=== PATIENT | female | born 1975 | race Caucasian/White ===

== ENCOUNTER 2016-11-07 14:18 | Emergency (ER) | payer MEDICARE ==
[2016-11-07] MEDS ORDERED: Sodium Chloride 0.9% 10 ML Syringe FLUSH PRN (14:25)
--- NOTE | 2016-11-07 14:41 | EDM.PDOC ---
ED HPI GENERAL MEDICAL PROBLEM - General Stated Complaint: STROKE FERNANDA, [id number] Time Seen by Provider: 11/07/16 14:32 Source of Information: Reports: Patient, RN Notes Reviewed History Limitations: Reports: No Limitations - History of Present Illness INITIAL COMMENTS - FREE TEXT/NARRATIVE: patient is a 40-year-old female who presents after she was at home and was getting ready to wash the dishes when she began having some right-sided tongue and right-sided lip tingling she states she also had some mild right leg weakness and came directly to the emergency room upon arrival to the emergency room all symptoms have resolved patient states symptoms last approximately 5 minuteshe denies any nausea vomiting headache recent fever or chills or illnesses. 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 Onset: Sudden Quality: Reports: Other (no pain numbness or tingling at this time) Severity: Mild Improves with: Reports: None Worsens with: Reports: None - Related Data Allergies Allergy/AdvReac Type Severity Reaction Status Date / Time cephalexin [From Keflex] Allergy Intermediate rash, Verified 05/09/16 13:52 itching AJMEL Inhibitors Allergy Unknown unknown Verified 05/09/16 15:46 Home Meds: Home Meds Carvedilol [Carvedilol] 6.25 mg PO ASDIRECTED PRN 05/09/16 [History] Darbepoetin Anant [Aranesp] 25 mcg IJ ASDIRECTED 05/09/16 [History] Doxercalciferol [Hectorol] 4 mcg IV ASDIRECTED 05/09/16 [History] Furosemide [Furosemide] 40 mg PO BID 05/09/16 [History] Loratadine [Claritin] 10 mg PO DAILY 05/09/16 [History] Vit B Cmplx NO3/Fa/C/Biot/Zinc [Nephplex Rx] 1 tab PO DAILY 05/09/16 [History] amLODIPine [Norvasc] 10 mg PO DAILY 05/09/16 [History] Aspirin 325 mg PO DAILY 11/07/16 [History] Heparin Sodium,Porcine/PF [Heparin 500 Unit/5 ml (100/ml)] 500 units .ROUTE ASDIRECTED 11/07/16 [History] atorvaSTATin [Lipitor] 10 mg PO BEDTIME 11/07/16 [History] Past Medical History Cardiovascular History: Reports: Heart Murmur, Hypertension Genitourinary History: Reports: Dialysis, Renal Disease, Other (See Below) Other Genitourinary History: left kidney not functioning and right kidney functioning 7%. Has Focal sclerosis of the kidney disease. Shunt left arm. Musculoskeletal History: Reports: Other (See Below) Other Musculoskeletal History: Raynaud disease Neurological History: Reports: CVA Endocrine/Metabolic History: Reports: Vitamin D Deficiency Hematologic History: Reports: Blood Transfusion(s), Iron Deficiency - Infectious Disease History Infectious Disease History: Reports: Chicken Pox - Past Surgical History Female Surgical History: Reports: Section, Tubal Ligation Social & Family History - Family History HEENT: Reports: Other (See Below) Other HEENT Family History: father wears glasses. No other problems. Cardiac: Reports: Heart Failure, High Cholesterol, Hypertension, CT Endocrine/Metabolic: Reports: Diabetes, Type I, Diabetes, type II, Hypothyroidism Oncologic: Reports: Bone, Breast, Lung - Tobacco Use Smoking Status *Q: Current Every Day Smoker Years of Tobacco use: 14 Packs/Tins Daily: 1 ED ROS GENERAL - Review of Systems Review Of Systems: See Below Constitutional: Reports: No Symptoms HEENT: Reports: No Symptoms Respiratory: Reports: No Symptoms Cardiovascular: Reports: No Symptoms Endocrine: Reports: No Symptoms Musculoskeletal: Reports: No Symptoms Skin: Reports: No Symptoms Neurological: Reports: Numbness (right side of the tongue and lips), Tingling, Weakness ED EXAM, NEURO - Physical Exam Exam: See Below Exam Limited By: No Limitations General Appearance: Alert, WD/WN, No Apparent Distress Eye Exam: Bilateral Eye: EOMI, PERRL Nose: Normal Inspection, Normal Mucosa, No Blood Throat/Mouth: Normal Inspection, Normal Lips, Normal Teeth, Normal Gums, Normal Oropharynx, Normal Voice, No Airway Compromise, Other (mild right sided deviation of the tongue on protrusion) Head Exam: Atraumatic, Normocephalic Neck: Normal Inspection, Supple, Non-Tender, Full Range of Motion Respiratory/Chest: No Respiratory Distress, Lungs Clear, Normal Breath Sounds, No Accessory Muscle Use, Chest Non-Tender Cardiovascular: Normal Peripheral Pulses, Regular Rate, Rhythm, No Edema, No Gallop, No JVD, No Murmur, No Rub Neurological: Alert, Normal Mood/Affect, Normal Dorsiflexion, CN II-XII Intact, Normal Plantar Flexion, Normal Gait, Normal Reflexes, No Motor/Sensory Deficits , Oriented x 3. No: Abnormal Finger to Nose, Abnormal Sensation, Abnormal Light Touch, Abnormal Motor, Abnormal Pin Prick, Abn 2 Pt Discrimination, Straight Leg Raise (L), Straight Leg Raise (R) Extremities: Normal Range of Motion, Non-Tender, No Pedal Edema, Normal Capillary Refill, Other (dialysis shunt left upper arm ) Skin Exam: Warm, Dry, Intact, Normal Color, No Rash Course - Vital Signs Last Recorded V/S: Last Vital Signs Temp 98.4 F 11/07/16 14:18 Pulse 86 11/07/16 14:18 Resp 22 H 11/07/16 14:18 BP 133/72 11/07/16 14:18 Pulse Ox 98 11/07/16 14:18 - Orders/Labs/Meds Orders: Active Orders 24 hr Category Date Time Status Blood Glucose Check, Bedside [RC] ONETIME Care 11/07/16 14:30 Active Peripheral IV Care [RC] . DIRECTED Care 11/07/16 14:26 Active COMPREHENSIVE METABOLIC PN,CMP [CHEM] Stat Lab 11/07/16 14:50 Received INR,PT,PROTHROMBIN TIME [COAG] Stat Lab 11/07/16 14:50 Received Sodium Chloride 0.9% [Saline Flush] Med 11/07/16 14:25 Active 10 ml FLUSH ASDIRECTED PRN Peripheral IV Insertion Adult [OM.PC] Routine Oth 11/07/16 14:25 Ordered Medication Orders Sodium Chloride (Saline Flush) 10 ml FLUSH ASDIRECTED PRN PRN Reason: Keep Vein Open Labs: Laboratory Tests 11/07/16 11/07/16 Range/Units 14:39 14:50 WBC 11.8 H (5.0-10.0) 10^3/uL RBC 3.37 L (4.2-5.4) 10^6/uL Hgb 11.0 L (12.0-16.0) g/dL Hct 33.3 L (37.0-47.0) % MCV 98.8 (80-100) fL MCH 32.6 (27.0-34.0) pg MCHC 33.0 (33.0-35.0) g/dL Plt Count 267 (150-450) 10^3/uL Neut % (Auto) 67.1 (42.2-75.2) % Lymph % (Auto) 13.8 L (20.5-50.1) % [place] % (Auto) 14.0 H (2-8) % Eos % (Auto) 4.9 H (1.0-3.0) % Baso % (Auto) 0.2 (0.0-1.0) % POC Glucose 118 H (70-105) mg/dl Meds: Medications Generic Name Dose Route Start Last Admin Trade Name Freq PRN Reason Stop Dose Admin Sodium Chloride 10 ml 11/07/16 14:25 Saline Flush FLUSH ASDIRECTED PRN Keep Vein Open - Radiology Interpretation Free Text/Narrative:: CT head w/o no new signs of focal cerebral cortical edema, infarct, intracerebral/intraventricular/subarchnoid bleed or hydrocephalus. per radiology report reviewed by myself. - Re-Assessments/Exams Free Text/Narrative Re-Assessment/Exam: 11/07/16 15:35 I contacted [facility] and was unable to get hold of neurology so I spoke with Dr Cho the Hospitalist who agreed to admit and have neurology consult. Patient and Dr. Cho were agreeable to the patient coming in via private vehicle. She was given 75 mg of Plavix prior to discharge and was told to go directly to [facility] for Admission. issues family was at bedside and was agreeable that the patient would followup as directed. Departure - Departure Time of Disposition: 15:37 Disposition: DC/Tfer to Acute Hospital 02 Condition: good Clinical Impression: TIA (transient ischemic attack) Qualifiers: Transient cerebral ischemia type: unspecified Qualified Code(s): G45.9 - Transient cerebral ischemic attack, unspecified - Discharge Information Additional Instructions: GO DIRECTLY TO [facility] FOR ADMISSION - My Orders Last 24 Hours: My Active Orders 11/07/16 14:25 Sodium Chloride 0.9% [Saline Flush] 10 ml FLUSH ASDIRECTED PRN Peripheral IV Insertion Adult [OM.PC] Routine 11/07/16 14:26 Peripheral IV Care [RC] . DIRECTED 11/07/16 14:30 Blood Glucose Check, Bedside [RC] ONETIME 11/07/16 14:50 COMPREHENSIVE METABOLIC PN,CMP [CHEM] Stat INR,PT,PROTHROMBIN TIME [COAG] Stat - Assessment/Plan Last 24 Hours: My Active Orders 11/07/16 14:25 Sodium Chloride 0.9% [Saline Flush] 10 ml FLUSH ASDIRECTED PRN Peripheral IV Insertion Adult [OM.PC] Routine 11/07/16 14:26 Peripheral IV Care [RC] . DIRECTED 11/07/16 14:30 Blood Glucose Check, Bedside [RC] ONETIME 11/07/16 14:50 COMPREHENSIVE METABOLIC PN,CMP [CHEM] Stat INR,PT,PROTHROMBIN TIME [COAG] Stat
--- NOTE | 2016-11-07 14:48 | CT ---
Clinical history: 40-year-old hypertensive renal dialysis patient with transient right-sided weaknes s and some speech difficulties reported on previous CT exam head 09 May 2016 for similar sympto matology to have a "negative" exam. Scan technique: Volume acquisition of data emergency unenhanced CT scan of the head obtained with pa tient lying supine on the Siemens multi slice scanner [facility]. All data archived in the PAC system for storage and study (bone/brain windows). Interpretation: Negative exam unchanged when compared directly to images of 2015. 1. No new signs of focal cerebral cortical edema, infarct, intracerebral/intraventricular/subarachno id bleed or hydrocephalus. 2. Physiologic midline pineal and symmetric choroid plexus calcifications. 3. Cerebellum and brainstem unremarkable. 4. Uniformly thick bony calvarium without sign of skull fracture. Symmetric clear pneumatization of the mastoid and paranasal sinuses. Nasal septum is straight in the midline.
[2016-11-07 15:08] VITALS: BP 133/72
[2016-11-07 15:17] LABS: CHLORIDE,CL 92 mmol/L (101-111); SODIUM,NA 134 mmol/L (135-145)
[2016-11-07] MEDS ORDERED: Clopidogrel 75 MG Tab PO ONE (15:26)
--- NOTE | 2016-11-09 14:42 | EKG ---
11/07/2016- MICHELLE THAKKAR - Twelve-lead EKG shows normal sinus rhythm with prolonged MT interval. MT interval of 233. No significant ST elevation or ST depression noted on this 12- lead EKG. Nonspecific T-wave changes noted. [facility] /[id number]
== END 2016-11-07 15:45 ==
LOC: DL.ED 14:18
DX: G45.9 Transient cerebral ischemic attack, unspecified (principal); I10 Essential (primary) hypertension; F17.210 Nicotine dependence, cigarettes, uncomplicated; Z88.8 Allergy status to other drugs, medicaments and biological substances; Z79.899 Other long term (current) drug therapy; Z79.82 Long term (current) use of aspirin
CPT/HCPCS: 36415; 70450; 80053; 82962; 85025; 85610; 93005; 93010; 99285; A9270; 99283

== ENCOUNTER 2021-02-10 05:07 | Emergency (ER) | payer MEDICARE ==
[2021-02-10 05:26] VITALS: BP 136/99; PULSE 122
[2021-02-10] MEDS ORDERED: Diltiazem 25 MG/5 ML SDV IVPUSH ONE ×2 (05:31→06:19)
--- NOTE | 2021-02-10 05:37 | EDM.PDOC ---
ED HPI GENERAL MEDICAL PROBLEM - General Chief Complaint: Cardiovascular Problem Stated Complaint: SENT FROM DIALYSIS HAS FAST HEART RATE Time Seen by Provider: 02/10/21 05:25 Source of Information: Reports: Patient, Old Records, RN, RN Notes Reviewed, Other (Dialysis nurse report/med list) History Limitations: Reports: No Limitations - History of Present Illness INITIAL COMMENTS - FREE TEXT/NARRATIVE: Vane is a 45 y/o female with history of ESRD on hemodialysis who presents to the ED from dialysis due to tachyarrhythmia. The patient states she noticed a fluttering feeling in her chest upon awakening this morning, but denies chest pain/pressure or shortness of breath. She states she took her medications this morning, per her normal routine before dialysis. Her schedule includes Saturday/Saturday/Saturday hemodialysis; she denies missing recent therapies and her wet weight was not above normal. She denies recent illness, fever, rigors, dyspepsia, nausea, vomiting, or diarrhea. She denies a history of atrial fibrillation. - Related Data Allergies Allergy/AdvReac Type Severity Reaction Status Date / Time cephalexin [From Keflex] Allergy Intermediate rash, Verified 02/10/21 05:28 itching JAMEL Inhibitors Allergy Unknown unknown Verified 02/10/21 05:28 Home Meds: Home Meds Furosemide 80 mg PO BIDMEALS 05/09/16 [History] Loratadine [Claritin] 10 mg PO DAILY 05/09/16 [History] Vit B Cmplx NO3/Fa/C/Biot/Zinc [Nephplex Rx] 1 tab PO DAILY 05/09/16 [History] amLODIPine [Norvasc] 10 mg PO DAILY 05/09/16 [History] carvediloL [Carvedilol] 6.25 mg PO DAILY 05/09/16 [History] Aspirin 325 mg PO DAILY 11/07/16 [History] Heparin Sodium,Porcine/PF [Heparin 500 Unit/5 ml (100/ml)] 500 units .ROUTE ASDIRECTED 11/07/16 [History] atorvaSTATin [Lipitor] 80 mg PO BEDTIME 11/07/16 [History] Acetaminophen 325 mg PO Q6HR PRN 02/10/21 [History] Calcium Acetate [PhosLo] 1,334 mg PO TIDMEALS 02/10/21 [History] Cinacalcet [Sensipar] 30 mg PO DAILY 02/10/21 [History] Clopidogrel [Plavix] 75 mg PO DAILY 02/10/21 [History] Irbesartan [Avapro] 150 mg PO DAILY 02/10/21 [History] Sevelamer Carbonate [Renvela] 3,200 mg PO TIDMEALS 02/10/21 [History] Sodium Ferric Gluconat/Sucrose [Sodium Ferric Gluc Cplx 62.5 MG/5 ML] 12.5 mg INJECT Q14D 02/10/21 [History] Sucroferric Oxyhydroxide [Velphoro] 1,000 mg PO TIDMEALS 02/10/21 [History] Past Medical History Cardiovascular History: Reports: Heart Murmur, Hypertension Genitourinary History: Reports: Dialysis, Renal Disease, Other (See Below) Other Genitourinary History: left kidney not functioning and right kidney functioning 7%. Has Focal sclerosis of the kidney disease. Shunt left arm. Musculoskeletal History: Reports: Other (See Below) Other Musculoskeletal History: Raynaud disease Neurological History: Reports: CVA Endocrine/Metabolic History: Reports: Vitamin D Deficiency Hematologic History: Reports: Blood Transfusion(s), Iron Deficiency - Infectious Disease History Infectious Disease History: Reports: Chicken Pox - Past Surgical History Head Surgeries/Procedures: Reports: Shunt HEENT Surgical History: Reports: Tonsillectomy Female Surgical History: Reports: Section, Tubal Ligation Social & Family History - Family History HEENT: Reports: Other (See Below) Other HEENT Family History: father wears glasses. No other problems. Cardiac: Reports: Heart Failure, High Cholesterol, Hypertension, [place] Endocrine/Metabolic: Reports: Diabetes, Type I, Diabetes, type II, Hypothyroidism Oncologic: Reports: Bone, Breast, Lung - Tobacco Use Tobacco Use Status *Q: Current Some Day Tobacco User Years of Tobacco use: 3 Packs/Tins Daily: 0.1 - Caffeine Use Caffeine Use: Reports: Soda - Recreational Drug Use Recreational Drug Use: No ED ROS GENERAL - Review of Systems Review Of Systems: Comprehensive ROS is negative, except as noted in HPI. ED EXAM, GENERAL - Physical Exam Exam: See Below Exam Limited By: No Limitations General Appearance: Alert, No Apparent Distress Eye Exam: Bilateral Eye: EOMI, Normal Inspection, PERRL (3mm) Ears: Normal External Exam, Normal Canal, Hearing Grossly Normal, Normal TMs Ear Exam: Bilateral Ear: Auricle Normal, Canal Normal, TM normal Nose: Normal Inspection, Normal Mucosa, No Blood Throat/Mouth: Normal Inspection, Normal Oropharynx, Normal Voice, No Airway Compromise Head: Atraumatic, Normocephalic Neck: Normal Inspection, Supple, Non-Tender, Full Range of Motion. No: Lymphadenopathy (L), Lymphadenopathy (R) Respiratory/Chest: No Respiratory Distress, Lungs Clear, Normal Breath Sounds, No Accessory Muscle Use, Chest Non-Tender. No: Crackles, Rales, Rhonchi, Wheezing, Stridor Cardiovascular: No Gallop, No JVD, No Murmur, No Rub, Tachycardia, Irregularly Irregular. No: No Edema Peripheral Pulses: 2+: Radial (L), Radial (R), Dorsalis Pedis (L), Dorsalis Pedis (R) GI/Abdominal: Normal Bowel Sounds, Soft, Non-Tender, No Distention, No Abnormal Bruit, Pelvis Stable (Female) Exam: Deferred Rectal (Female) Exam: Deferred Back Exam: Normal Inspection, Full Range of Motion Extremities: Normal Range of Motion, Normal Capillary Refill, Pedal Edema (Trace pitting, bilaterally) Neurological: Alert, Oriented, CN II-XII Intact, Normal Cognition, Normal Gait, No Motor/Sensory Deficits Psychiatric: Normal Affect, Normal Mood Skin Exam: Warm, Dry, Intact, Normal Color, No Rash. No: Cyanosis, Jaundice, Mottled, Pallor Lymphatic: No Adenopathy #1 Interpretation EKG Date: 02/10/21 Time: 05:26 Rhythm: A-Fib (with RVR) Rate (Beats/Min): 134 [place]: RAD-Right [place] Deviation P-Wave: Absent QRS: Normal ST-T: Depressed QT: Prolonged (0.506) Comparison: Change From Previous EKG ((11-07-16)) EKG Interpretation Comments: AFib with RVR; RAD Course - Vital Signs Last Recorded V/S: Last Vital Signs Temp 97.5 F 02/10/21 05:25 Pulse 122 H 02/10/21 05:25 Resp 20 02/10/21 05:25 BP 136/99 H 02/10/21 05:25 Pulse Ox 97 02/10/21 05:25 - Orders/Labs/Meds Labs: Laboratory Tests 02/10/21 02/10/21 Range/Units 05:40 05:40 WBC 8.1 (5.0-10.0) 10^3/uL RBC 2.99 L (4.2-5.4) 10^6/uL Hgb 10.2 L (12.0-16.0) g/dL Hct 30.8 L (37.0-47.0) % MCV 103.0 H D (80-100) fL MCH 34.1 H (27.0-34.0) pg MCHC 33.1 (33.0-35.0) g/dL Plt Count 113 L D (150-450) 10^3/uL Neut % (Auto) 68.2 (42.2-75.2) % Lymph % (Auto) 12.7 L (20.5-50.1) % [place] % (Auto) 11.4 H (2-8) % Eos % (Auto) 7.3 H (1.0-3.0) % Baso % (Auto) 0.4 (0.0-1.0) % Sodium 138 (136-145) mmol/L Potassium 4.0 (3.5-5.1) mmol/L Chloride 98 (98-107) mmol/L Carbon Dioxide 24 (21-32) mmol/L Anion Gap 20.0 H (7-13) mEq/L BUN 41 H (7-18) mg/dL Creatinine 7.12 H* (0.55-1.02) mg/dL Est Cr Clr Drug Dosing TNP Estimated GFR (MDRD) 6 BUN/Creatinine Ratio 5.8 (No establ ref range) Glucose 102 H (70-99) mg/dL Calcium 8.3 L (8.5-10.1) mg/dL Total Bilirubin 0.6 (0.2-1.0) mg/dL AST 20 (15-37) U/L ALT 26 (14-59) U/L Alkaline Phosphatase 120 H (46-116) U/L Troponin I High Sens 39 (<=51) pg/mL Total Protein 7.7 (6.4-8.2) g/dL Albumin 3.7 (3.4-5.0) g/dL Globulin 4.0 Albumin/Globulin Ratio 0.9 Meds: Medications Discontinued Medications Generic Name Dose Route Start Last Admin Trade Name Freq PRN Reason Stop Dose Admin Diltiazem HCl 10 mg 02/10/21 05:31 02/10/21 05:43 Diltiazem 25 Mg/5 Ml Sdv IVPUSH 02/10/21 05:32 10 mg ONETIME ONE Administration Diltiazem HCl 10 mg 02/10/21 06:19 02/10/21 06:23 Diltiazem 25 Mg/5 Ml Sdv IVPUSH 02/10/21 06:20 10 mg ONETIME ONE Administration - Re-Assessments/Exams Free Text/Narrative Re-Assessment/Exam: 02/10/21 Diltiazem 10mg IVP administered will reduction in rate to low 100s, patient remains in AFib. Blood work at patient's baseline. Patient continues to deny chest pain/pressure or shortness of breath. Diltiazem 10mg IVP administered. HR 70-80s, still in AFib. Patient continues to deny chest pain/pressure or shortness of breath. Patient currently on Plavix. Will discharge patient to hemodialysis. Patient scheduled with PCP in five days, patient to discuss need for cardiology consult. Red flag signs and symptoms which would warrant immediate reevaluation reviewed. Patient verbalized understanding and agreement with the plan of care. Departure - Departure Time of Disposition: 06:49 Disposition: Home, Self-Care 01 Condition: Fair Clinical Impression: Atrial fibrillation by electrocardiogram, History of chronic kidney disease, Hemodialysis patient Forms: ED Department Discharge Additional Instructions: 1.) After discharge from emergency department, go to dialysis to receive your treatment. 2.) Follow up with your primary care provider, as previously scheduled to discuss cardiology consult. 3.) Continue on your previously prescribed medications. 4.) Return to the emergency department with any return of symptoms or chest pain, chest pressure, shortness of breath, vision changes, or dizziness. Sepsis Event Note (ED) - Evaluation Sepsis Screening Result: No Definite Risk
[2021-02-10 06:09] LABS: CHLORIDE,CL 98 mmol/L (98-107); SODIUM,NA 138 mmol/L (136-145)
== END 2021-02-10 07:01 | disposition home or self-care (01) ==
LOC: DL.ED 05:07
DX: I48.91 Unspecified atrial fibrillation (principal); I12.0 Hypertensive chronic kidney disease with stage 5 chronic kidney disease or end stage renal disease; N18.6 End stage renal disease; Z72.0 Tobacco use; Z99.2 Dependence on renal dialysis; Z88.1 Allergy status to other antibiotic agents; Z88.8 Allergy status to other drugs, medicaments and biological substances; Z79.02 Long term (current) use of antithrombotics/antiplatelets; Z79.899 Other long term (current) drug therapy
CPT/HCPCS: 36415; 80053; 84484; 85025; 93010; 96374; 96376; 99284; 99285; J3490

== ENCOUNTER 2021-10-06 13:11 | Emergency (ER) | payer MEDICARE, BC ==
[2021-10-06 14:13] VITALS: BP 117/72; PULSE 85
== END 2021-10-06 15:24 | disposition home or self-care (01) ==
LOC: DL.ED 13:11
DX: L03.311 Cellulitis of abdominal wall (principal); I10 Essential (primary) hypertension; Z88.1 Allergy status to other antibiotic agents; Z88.8 Allergy status to other drugs, medicaments and biological substances; Z79.02 Long term (current) use of antithrombotics/antiplatelets; Z86.16 Personal history of COVID-19; Z79.899 Other long term (current) drug therapy; Z72.0 Tobacco use; Z86.73 Personal history of transient ischemic attack (TIA), and cerebral infarction without residual deficits; Z79.82 Long term (current) use of aspirin
CPT/HCPCS: 36415; 76705; 80053; 82728; 83540; 83550; 85025; 99284; 99284-25

== ENCOUNTER 2021-10-18 19:18 | Observation (INO) | payer MEDICARE, BC ==
[2021-10-18 20:39] LABS: ANION GAP 18.2 mEq/L (7-13)
[2021-10-18] MEDS ORDERED: Acetaminophen/HYDROcodone 325-5 MG Tab PO ONE (20:40)
[2021-10-18] MEDS ORDERED: fentaNYL 100 MCG/2 ML SDV IVPUSH ONE (22:56)
[2021-10-18] MEDS ORDERED: Bisacodyl 5 MG Tab PO PRN (23:45)
[2021-10-18] MEDS ORDERED: Docusate Sodium 100 MG Cap PO PRN (23:45)
[2021-10-18] MEDS ORDERED: Magnesium Hydroxide 400 MG/5 ML Susp 30 ML Cup PO PRN (23:45)
[2021-10-18] MEDS ORDERED: Acetaminophen/HYDROcodone 325-5 MG Tab PO PRN (23:45)
[2021-10-18] MEDS ORDERED: Polyethylene Glycol 3350 Powder 17 GM Packet PO PRN (23:45)
[2021-10-18] MEDS ORDERED: Acetaminophen 325 MG Tab PO PRN (23:45)
[2021-10-18] MEDS ORDERED: Albuterol/Ipratropium 3.0-0.5 MG/3 ML Neb Soln NEB PRN (23:45)
[2021-10-18] MEDS ORDERED: HYDROmorphone 0.5 MG/0.5 ML Syringe IVPUSH PRN (23:45)
[2021-10-18] MEDS ORDERED: LORazepam 2 MG/ML SDV IVPUSH PRN (23:45)
[2021-10-18] MEDS ORDERED: Ondansetron 4 MG/2 ML SDV IVPUSH PRN (23:45)
[2021-10-18] MEDS ORDERED: fentaNYL 100 MCG/2 ML SDV IVPUSH PRN (23:49)
[2021-10-19] MEDS ORDERED: diphenhydrAMINE 50 MG/ML SDV IVPUSH ONE (00:17)
[2021-10-19] MEDS ORDERED: Dexamethasone 4 MG/ML SDV IVPUSH ONE (00:17)
[2021-10-19] MEDS ORDERED: Piperacillin/Tazobactam 3.375 GM in Sodium Chloride 0.9% 100 ML IV ONE (00:30)
[2021-10-19] MEDS ORDERED: Piperacillin/Tazobactam 3.375 GM in Sodium Chloride 0.9% 100 ML IV SCH (00:30)
[2021-10-19] MEDS ORDERED: Piperacillin/Tazobactam 2.25 GM in Sodium Chloride 0.9% 50 ML IV SCH (02:00)
[2021-10-19 07:37] LABS: ANION GAP 22.3 mEq/L (7-13)
[2021-10-19 08:20] VITALS: BP 105/65; PULSE 71
[2021-10-19] MEDS ORDERED: SODIUM CHLORIDE 0.9% IV SCH (09:00)
[2021-10-19] MEDS ORDERED: VANCOMYCIN IV SCH (09:00)
== END 2021-10-19 09:10 | disposition left against medical advice (07) ==
LOC: DL.ED 19:18 → DL.MS 23:41
PROVIDERS: ADMIT Internal Medicine; ATTEND Internal Medicine
DX: L03.311 Cellulitis of abdominal wall (principal); L03.116 Cellulitis of left lower limb; L03.115 Cellulitis of right lower limb; E78.5 Hyperlipidemia, unspecified; I12.0 Hypertensive chronic kidney disease with stage 5 chronic kidney disease or end stage renal disease; N18.6 End stage renal disease; F17.210 Nicotine dependence, cigarettes, uncomplicated; D63.1 Anemia in chronic kidney disease; D72.829 Elevated white blood cell count, unspecified; R73.9 Hyperglycemia, unspecified; E83.39 Other disorders of phosphorus metabolism; E55.9 Vitamin D deficiency, unspecified; E66.9 Obesity, unspecified; Z20.822 Contact with and (suspected) exposure to COVID-19; Z99.2 Dependence on renal dialysis; Z88.8 Allergy status to other drugs, medicaments and biological substances; Z79.899 Other long term (current) drug therapy; Z79.82 Long term (current) use of aspirin; Z86.73 Personal history of transient ischemic attack (TIA), and cerebral infarction without residual deficits; Z98.890 Other specified postprocedural states
CPT/HCPCS: 36415; 73700; 74176; 80048; 80053; 83605; 83735; 83880; 84100; 85025; 85379; 85610; 85651; 86140; 87040; 96365; 96367; 96375; 99217; 99220; 99284; 99285-25; A9270-GY; G0378; J1100; J2543; J3010; J3370; J7050; U0002

== ENCOUNTER → 2021-10-20 | Day surgery (SDC) | payer MEDICARE, BC ==
[2021-10-20 17:34] VITALS: BP 95/53; PULSE 62
== END | disposition home or self-care (01) ==
LOC: DL.BLOODTR 09:31
PROVIDERS: ATTEND Internal Medicine Nephrology
DX: D72.829 Elevated white blood cell count, unspecified (principal)
CPT/HCPCS: 36415; 36430; 86850; 86900; 86901; 86920; 86922; P9016

== ENCOUNTER 2022-03-23 05:49 | Emergency (ER) | payer MEDICARE, BC ==
[2022-04-16 15:02] LABS: ANION GAP 17.3 mEq/L (7-13); CHLORIDE,CL 96 mmol/L (98-107); ESTIMATED GFR 12 mL/min (>=60); SODIUM,NA 134 mmol/L (136-145)
== END 2022-03-23 06:59 | disposition home or self-care (01) ==
LOC: DL.ED 05:49
DX: I48.20 Chronic atrial fibrillation, unspecified (principal)
CPT/HCPCS: 36415; 80053; 84484; 85025; 85610; 93005; 99285